=== PATIENT | male | born 1995 | race Two or more races ===

== ENCOUNTER 2020-03-31 21:28 | Emergency (ER) | payer MEDICAID ==
[~2020-03-31] VITALS: Ht 165.1 cm; Wt 66.0 kg
[2020-03-31] MEDS ORDERED: KETOROLAC 60MG/2ML VIAL IM STA (22:36)
[2020-03-31] MEDS ORDERED: AMOXICILLIN/POTASSIUM CLAVULANATE 875/125MG TAB PO NR (22:45)
[2020-03-31 23:04] VITALS: BP 111/61
== END 2020-03-31 23:05 | disposition home or self-care (01) ==
LOC: ER 21:28
DX: K04.7 Periapical abscess without sinus (principal); K02.9 Dental caries, unspecified
CPT/HCPCS: 96372; 99283; J1885

== ENCOUNTER 2020-08-05 00:33 | Emergency (ER) | payer SELFPAY ==
[~2020-08-05] VITALS: Ht 165.1 cm; Wt 62.0 kg
[2020-08-05 00:37] VITALS: BP 123/65
[2020-08-05] MEDS ORDERED: KETOROLAC 30MG/ML VIAL IV STA (00:57)
[2020-08-05] MEDS ORDERED: SODIUM CHLORIDE 0.9% 1,000 ML IV ONE (01:00)
[2020-08-05 05:36] LABS: *AMPHETAMINES SCREEN URINE NEGATIVE (NEGATIVE)
[2020-08-05 05:37] LABS: *BARBITURATES SCREEN URINE NEGATIVE (NEGATIVE); *BENZODIAZEPINES SCREEN URINE NEGATIVE (NEGATIVE); *COCAINE SCREEN URINE NEGATIVE (NEGATIVE); METHADONE URINE SCREEN NEGATIVE (NEGATIVE); OPIATES URINE SCREEN NEGATIVE (NEGATIVE)
[2020-08-05 05:38] LABS: CANNABINOID URINE SCREEN NEGATIVE (NEGATIVE); PHENCYCLIDINE URINE SCREEN NEGATIVE (NEGATIVE)
== END 2020-08-05 01:29 | disposition left against medical advice (07) ==
LOC: ER 00:33
DX: R07.89 Other chest pain (principal); R42 Dizziness and giddiness; F10.10 Alcohol abuse, uncomplicated; Y90.9 Presence of alcohol in blood, level not specified
CPT/HCPCS: 80305; 93005; 99283; J7030